=== PATIENT | female | born 1990 | race Caucasian/White ===

== ENCOUNTER → 2018-03-16 01:01 | Observation (INO) ==
[2018-03-15 23:13] LABS: Bilirubin,Urine Negative (Negative); Blood,Urine Negative (Negative); Clarity,Urine Clear (Clear); Color,Urine Yellow (Yellow); Glucose,Urine (UA) Normal (Normal); Ketones,Urine Negative (Negative); Leukocyte Esterase,Urine Negative (Negative); Nitrite,Urine Negative (Negative); Protein,Urine Negative (Neg-Trace); Specific Gravity,Urine 1.013 (1.010-1.025); Urobilinogen,Urine Normal (Normal)
[2018-03-15 23:21] LABS: Amphetamine Screen,Urine Negative ng/mL (Cutoff=1000); Barbiturate Screen,Urine Negative ng/mL (Cutoff=200); Benzodiazepines Screen,Urine Negative ng/mL (Cutoff=200); Cannabinoid Screen,Urine Negative ng/mL (Cutoff = 50); Cocaine Screen,Urine Negative ng/mL (Cutoff= 300); Opiate Screen,Urine Negative ng/mL (Cutoff=300); Phencyclidine Screen,Urine Negative ng/mL (Cutoff=25)
--- NOTE | 2018-03-16 00:42 | OB/GYN Progress Note ---
Date of Encounter: 03/16/18 Time of Encounter: 00:39 - Assessment and Plan (1) 37 weeks gestation of Current Visit: Yes Status: Acute Maintain follow-up with Dr. Barba as scheduled Labor precautions given Discharge home (2) Uterine contractions during Current Visit: Yes Status: Acute UA-negative Likely early labor Cervix unchanged after several hours Subjective - Subjective Principal diagnosis: Uterine contractions Interval history: Ms. Whelan is a 27yo who presents today with complaints of contractions that started around 1300 on 03/15. She reports Dr. Barba placed her on the NST today and did a vaginal exam. She says he states she was 5 cm dilated. He noted she was paulo on her NST but was not making change from previous vaginal exams. She reports good movement and denies leakage of fluid and vaginal bleeding. She has no complaints of headaches, vision changes, right upper quadrant pain. Antepartum ROS: new complaints, movement normal, contractions, no loss of fluid, no vaginal bleeding Objective - Vital Signs Vital Signs: Intake and Output 03/15/18 03/15/18 03/16/18 15:59 23:59 07:59 Other: Weight 76.1 kg - Exam FHR: category 1 FHR comments: Baseline 120 Moderate variability Accelerations present 15 x 15 No decelerations FHR category I Contractions every 3-5 minutes and palpate mild Auscultation: bilateral: normal Abdomen: Present: normal appearance, soft, gravid Uterus: Present: normal, firm Cervical dilation: 5 (per RN) Cervix effacement: 80 station: -2
== END | disposition home or self-care (01) ==
LOC: 1NENULAB
PROVIDERS: ADMIT Advanced Practice Midwife; ATTEND Advanced Practice Midwife

== ENCOUNTER 2018-03-27 19:45 | Inpatient (IN) ==
--- NOTE | 2018-03-27 18:39 | OB/GYN History & Physical ---
Date of Encounter: 03/27/18 Time of Encounter: 18:34 Assessment and Plan (1) 38 weeks gestation of Current visit: Yes Status: Acute (2) Intrauterine Current visit: Yes Status: Acute Admit to L&D for observation of labor Expectant management May have epidural upon request Labs-CBC and clot to hold CEFM Anticipate Dr. Barrios is OB aerodynamic consultant and is available as needed (3) Intact amniotic membranes Current visit: Yes Status: Acute Qualifiers: Trimester: third trimester Qualified Code(s): Z34.93 - Encounter for supervision of normal , unspecified, third trimester (4) GBS (group B Streptococcus carrier), +RV culture, currently Current visit: Yes Status: Acute Penicillin per protocol History of Present Illness Chief complaint: contractions HPI: Ms. Whelan is a 27 year old female at 38 weeks 6 days gestation with an estimated date of of 04/04/18 dated by LMP. She presents from Dr. Barba's office in [place] with complaints of contractions that started last night around 9 or 10:00. She also complains of slight leakage of fluid and is questioning whether or not her water broke. She endorses good movement and denies vaginal bleeding. She is received care from Dr. Barba throughout her . records are available electronically and have been reviewed. Her has been uncomplicated. Labs: O+ GBS+ Hep B- HIV- T. Palladium- GC/CL- Rubella immune Varicella immune Past Med Surg Social Fam HX - Past Medical History Medical history: no medical history Psychiatric history: no psych history - Past Surgical History Additional surgical history: wisdom teeth removal - Social History Smoking Status: Never smoker Smokeless Tobacco Status: No Alcohol use: none Drug use: none - Family History Mother Living Status: Still Living Hx Family Cardiac Disorders: No Hx Family Respiratory Disorders: No Hx Family Cancer: No Hx Family GI Disorders: No Hx Family Genitourinary Disorders: No Hx Family Endocrine Disorder: Yes (hypothyroidism) Hx Family Musculoskeletal Disorders: No Hx Family Neuromuscular Disorders: No Hx Family Neurologic Disorders: No Hx Family HEENT Disorders: No Hx Family Autoimmune Disorders: No Hx Family Reproductive Disorders: No Hx Family Psychosocial Disorders: No Hx Family Medical Disorders: No Obstetrical History - Pregnancies : 2 Para: 1 Term: 1 (1: 09/06/2014, Male, 7lbs 6oz, normal spontaneous vaginal delivery ( ). ) : 0 Ab's: 0 Livin Medications and Allergies Ferrous Sulfate [Iron] 325 mg PO DAILY 03/15/18 [History] Multivitamin [Flintstones] 1 tab PO DAILY 03/15/18 [History] 3 Allergy/AdvReac Type Severity Reaction Status Date / Time prochlorperazine Allergy Hives Verified 03/15/18 22:45 [From Compazine] Review of System OB All systems PM: reviewed and no additional remarkable complaints except as stated Exam - Constitutional Constitutional: well developed, well nourished, average body habitus, mild distress - HEENT HEENT: Normocephaly, Mucus Membranes Moist - Neck Neck exam: full ROM - Lungs Respiratory exam: CTAB - Cardiovascular Cardiovascular exam: RRR, +S1, +S2 - Breasts Breast: bilateral: normal - Abdomen Abdomen: Present: bowel sounds normal, gravid, non tender - Extremities Extremities exam: normal capillary refill, normal inspection, pedal edema, radial pulses palpable and symmetrical Deep Tendon Reflex Grade: 2+ Normal - Vulva Vulva: bilateral: normal - Vagina Vagina: Present: normal moisture - Cervix Dilation: 5 Effacement: 80 Station: 0 - Uterus Uterus exam: Present: normal size, normal contour - Adnexa Adnexa: bilateral: normal - Anus/Rectum Anus/Rectum: Present: normal perianal skin Results Result Diagrams: 03/27/18 18:30 All other labs normal. - VTE Reasons for not Prescribing Prophylaxis: Treatment not Indicated - Low risk for VTE
[2018-03-27 18:56] LABS: Basophils % 0.1 %; Eosinophils % 0.1 %; Hematocrit 31.3 % (35.3-44.9); Hemoglobin 10.5 g/dL (11.5-15.4); Immature Granulocytes % 0.3 % (0-4); Lymphocytes # 0.9 K/mcL (0.6-4.6); Lymphocytes % 13.3 %; Mean Corpuscular HGB Conc 33.5 g/dL (31.6-35.5); Mean Corpuscular Hemoglobin 30.3 pg (28.0-33.3); Mean Corpuscular Volume 90.5 fL (83.0-100.0); Mean Platelet Volume 12.1 fL (9.4-12.4); Monocytes # 0.4 K/mcL (0.0-1.3); Monocytes % 5.9 %; Neutrophils # 5.5 K/mcL (1.6-8.9); Platelet Count 176 K/mcL (140-400); Red Blood Count 3.46 M/mcL (3.82-4.97); Red Cell Distribution Width 13.3 % (11.5-14.5); Segmented Neutrophils % 80.3 %
[2018-03-27 19:08] LABS: Amphetamine Screen,Urine Negative ng/mL (Cutoff=1000); Barbiturate Screen,Urine Negative ng/mL (Cutoff=200); Benzodiazepines Screen,Urine Negative ng/mL (Cutoff=200); Cannabinoid Screen,Urine Negative ng/mL (Cutoff = 50); Cocaine Screen,Urine Negative ng/mL (Cutoff= 300); Opiate Screen,Urine Negative ng/mL (Cutoff=300); Phencyclidine Screen,Urine Negative ng/mL (Cutoff=25)
[~2018-03-27 19:45] MED LIST: *HR* FentaNYL (PF) 100 MCG/2 ML VIAL EP ONE; *HR* Nalbuphine 10 MG/ML AMPUL IVP PRN; Bupivacaine-MPF 0.25% 10 ML VIAL EP ONE; EPHEDrine 50 MG/ML VIAL IVP PRN; Epidural Premix (fent/bupiv) 110 ML EP ONE; Epidural Premix (fent/bupiv) 110 ML EP SCH; Famotidine 20 MG/2 ML VIAL IVP PRN; Lidocaine -MPF 1% 5 ML AMPUL ONE; Metoclopramide 10 MG/2 ML VIAL IVP PRN; Naloxone 0.4 MG/ML INJ IVP PRN; Ondansetron 4 MG/2 ML VIAL IVP PRN; Penicillin G Potassium 5,000,000 UNIT in 0.9 % Sodium Chloride Mini Bag 100 ML IVPB ONE; Ringers Solution, Lactated 1,000 ML IVC SCH; Ringers Solution, Lactated 1,000 ML ONE
[2018-03-27] MEDS ORDERED: Penicillin G Potassium 2,500,000 UNIT in 0.9 % Sodium Chloride 100 ML IVPB SCH (20:00)
--- NOTE | 2018-03-27 20:27 | Anesthesia Evaluation PreOp ---
Date of Encounter: 03/27/18 Time of Encounter: 19:42 - Past History Planned Operation: TINY Cardiac History: Denies any Significant Hx Pulmonary History: Denies Any Significant HX SLACK LINE YARDER History: Denies Any Significant HX Other Medical History: Denies Any Significant HX Anesthesia History: No Prior Anesthetic Complications, Past Anesthesia (wisdom teeth) : Yes Alcohol Use: none Drug use: none Medications and Allergies Ferrous Sulfate [Iron] 325 mg PO DAILY 03/15/18 [History] Multivitamin [Flintstones] 1 tab PO DAILY 03/15/18 [History] 3 Allergy/AdvReac Type Severity Reaction Status Date / Time prochlorperazine Allergy Hives Verified 03/15/18 22:45 [From Compazine] - Meds/Allergy Pre-op Review Medications Reviewed: Yes Allergies Reviewed: Yes Beta Blockers on Current Med List: No Anesthesia Results - Labs 03/27/18 18:30 Anesthesia Exam BP 139/79 P 83 R 16 T97.3 Height: 5'9" Weight: 76.6kg NPO (# of Hours): 2 Pain Scale: 5 Pain Scale Used: Numeric (1 - 10) - HEENT Pupil (Motor): Pupils equal Mallampati: II Teeth: Normal Oral Opening: Greater than 3 - SLACK LINE YARDER LOC: Oriented SLACK LINE YARDER Motor: Normal RUE, Normal LUE, Normal RLE, Normal LLE, Normal Face SLACK LINE YARDER Sensory: Normal: RUE, LUE, RLE, LLE, Face - Cardiac Rhythm: Regular Murmur: None JVD: No Carotid Bruit: No - Pulmonary Breath Sounds: bilateral Clear Respiratory Effort: Symmetrical Anesthesia Assess/Plan ASA Score: 2 Modified Alana Scale for Level of Consciousness: Cooperative, oriented, and tranquil Anesthetic Plan: Regional Autologous Blood: No Monitoring Plan: Standard Monitors Recovery Plan: Other
--- NOTE | 2018-03-27 20:40 | Anesthesia Procedures ---
Date of Encounter: 03/27/18 Time of Encounter: 19:42 Procedures: Anesthesia - Epidural/Spinal Patient ID/Chart reviewed: Yes Patient examined: Yes OB Eval: Gestational age: 39 OB Eval: : 2 OB Eval: Hx Para: 1 OB Eval: Dilated at (cm): 6 OB Eval: Contractions: Non-stressed pattern Consent Obtained: Yes Supplemental Oxygen: None/Room Air Site Prep: Aseptic Technique, Sterile prep and drape, Povidone-Iodine 1% Patient position: upright Local Anesthetic: Lidocaine 1% Amount of Local Anesthetic used: 3 Touhy Needle Gauge: 18 Touhy Needle Depth (cm): 4 Catheter Depth at Skin (cm): 14 Test Dose (1.5% Lido + Epi): Volume given (mls): 3 Test Dose Result: Negative Loading Dose: 0.25% Marcaine (mls): 10 Loading Dose: Fentanyl (mcg): 100 Loading Dose Administered: Thru Catheter Infusion Med: 0.125% Bupivacaine w/ 2 mcg/ml Fentanyl Infusion Rate (mls/hr): [address]: Tegaderm, Tape Interspace Used: L3-L4 Loss of Resistance (GISEL): Yes Blood: No CSF: No Paresthesia: No Procedure: TINY placed 1st pass in upright position without any immediate noted complications. VSS and FHT stable throughout. Vitals + FHT's: 1942 BP 139/79 P 83 R 18 2016 BP 119/73 P 84 R 16 FHT 160s
--- NOTE | 2018-03-27 21:07 | OB Labor Progress Note ---
Date of Encounter: 03/27/18 Time of Encounter: 21:05 Labor Progress Note - Subjective Subjective: Patient comfortable with epidural - Cervix Cervix: 6-7/80/+1 - Heart Tones Heart Tones: Baseline 125 moderate variability Accelerations present 15 x 15 No decelerations FHR category I - [place]: Contractions every 1-6 minutes and palpate mild - Interventions Interventions: SVE AROM-large amount of clear fluid - Plan Plan: Continue expectant management Frequent position changes with peanut ball Start Pitocin augmentation Anticipate Dr. Barrios is aware of plan of care and agrees
[2018-03-27] MEDS ORDERED: Oxytocin 20 units/ LR 1000 mL 20 UNIT/1,000 ML BAG IVC SCH (21:15)
--- NOTE | 2018-03-28 00:03 | Anesthesia Progress Note ---
Date of Encounter: 03/28/18 Time of Encounter: 11:50 Anesthesia Note - Note Note: Called to bedside for patient discomfort lower abdomen. Ropivicaine 0.2% 10ml bolus administered. VSS. 03/28/18 00:01
--- NOTE | 2018-03-28 02:12 | OB/GYN Procedure Note ---
Delivery - Delivery Date: 03/28/18 Provider: Marilyn Givens Intrapartum events: none Delivery induction: none Delivery augmentation: rupture of membranes, pitocin Delivery monitor: external FHT, external uterine Anesthesia: epidural Quantitated Blood Loss: 250 - Infant (s) Infant A Delivery Date: 03/28/18 Delivery Time: 01:38 Presentation: vertex Position: OA Route of delivery: Gender: Female Viability: Viable Pounds: 8 Ounces: 9 Weight Gram: 3.875 kg at 1 minute: 8 at 5 mins: 9 Shoulder Dystocia: not encountered Specimens collected: cord blood Placenta: spontaneous Cord: 3 umbilical vessels - Repair Episiotomy: none Laceration Description: Perineal - 1st Degree (repaired), Labial (left - repaired) - Complications Delivery complications: none Delivery comments: This is a 27-year-old G2 now P2 who is admitted for active labor. She progressed with AROM and Pitocin augmentation to the second stage of labor. She pushed for about 25 minutes. She delivered a viable female , AIXA over a first-degree laceration with the left labial extension. The was placed on the maternal abdomen where the mouth and nares were bulb suctioned. No nuchal cord was identified. No shoulder dystocia was encountered. scores were 8 at 1 minute and 9 at 5 minutes. The infant weighed 8 lbs. 9 oz (3875g). The placenta delivered spontaneously, intact, with a three-vessel cord. Inspection revealed a first-degree perineal laceration with a left labial extension. The laceration was repaired with a 3-0 Vicryl suture. The repair was done under epidural anesthesia. The uterus was firm with no active bleeding. EBL was 250 mL. Placenta and umbilical artery blood gases were held. There were no complications during the procedure. Dad is holding baby swaddled and mom is resting after delivery. - Disposition Mom disposition: stable in LDR [place] disposition: stable in LDR
[2018-03-28] MEDS ORDERED: Oxytocin 20 units/ LR 1000 mL 20 UNIT/1,000 ML BAG IVC SCH (03:28)
[2018-03-28 05:20] LABS: Basophils % 0.1 %; Hematocrit 28.8 % (35.3-44.9); Hemoglobin 9.7 g/dL (11.5-15.4); Immature Granulocytes % 0.6 % (0-4); Lymphocytes # 0.7 K/mcL (0.6-4.6); Lymphocytes % 5.3 %; Mean Corpuscular HGB Conc 33.7 g/dL (31.6-35.5); Mean Platelet Volume 12.1 fL (9.4-12.4); Monocytes # 0.6 K/mcL (0.0-1.3); Monocytes % 5.1 %; Neutrophils # 11.1 K/mcL (1.6-8.9); Platelet Count 153 K/mcL (140-400); Red Blood Count 3.13 M/mcL (3.82-4.97); Red Cell Distribution Width 13.3 % (11.5-14.5); Segmented Neutrophils % 88.9 %
[2018-03-28] MEDS: Prenatal Vit/FA 1 EACH TABLET PO SCH (07:28)
[2018-03-28] MEDS: Benzocaine/Menthol 56 GM AEROSOL SPRAY TP PRN ×2 (07:28→20:04)
[2018-03-28] MEDS: Ibuprofen 600 MG TABLET PO PRN ×3 (07:28→20:03)
[2018-03-28] MEDS: Acetaminophen 325 MG TABLET PO PRN ×2 (11:08→16:39)
[2018-03-29] MEDS: Ibuprofen 600 MG TABLET PO PRN (03:49)
[2018-03-29] MEDS: Prenatal Vit/FA 1 EACH TABLET PO SCH (08:25)
[2018-03-29 09:06] VITALS: BP 109/66
--- NOTE | 2018-03-29 10:18 | Discharge Summary ---
Date of Encounter: 03/29/18 Time of Encounter: 10:16 - Discharge Diagnosis (1) Vaginal delivery Priority: Primary Status: Acute Comments: Pt meeting all milestones. She desires discharge home today. - Discharge Medications Prescriptions: Ibuprofen [Motrin] 600 mg PO Q6HR PRN #30 tablet PRN Reason: Cramping Docusate [Colace] 100 mg PO BID #30 capsule Home Medications: Ferrous Sulfate [Iron] 325 mg PO DAILY 03/15/18 [History] Multivitamin [Flintstones] 1 tab PO DAILY 03/15/18 [History] Benzocaine/Menthol [place] [Dermoplast [place]] 1 appl TP QID PRN aerosol 03/29/18 [Rx] Docusate [Colace] 100 mg PO BID #30 capsule 03/29/18 [Rx] Ibuprofen [Motrin] 600 mg PO Q6HR PRN #30 tablet 03/29/18 [Rx] Allergies/Adverse Reactions: 3 Allergy/AdvReac Type Severity Reaction Status Date / Time prochlorperazine Allergy Hives Verified 03/15/18 22:45 [From Compazine] Data Procedures and tests throughout hospitalization: Laboratory Tests 03/27/18 03/27/18 03/28/18 18:30 18:30 04:34 WBC 6.9 12.5 H D RBC 3.46 L 3.13 L Hgb 10.5 L 9.7 L Hct 31.3 L 28.8 L MCV 90.5 92.0 MCH 30.3 31.0 MCHC 33.5 33.7 RDW 13.3 13.3 Plt Count 176 153 MPV 12.1 12.1 Immature Gran % 0.3 0.6 Seg Neutrophils % 80.3 88.9 Lymphocytes % 13.3 5.3 Monocytes % 5.9 5.1 Eosinophils % 0.1 0.0 Basophils % 0.1 0.1 Neutrophils # 5.5 11.1 H Lymphocytes # 0.9 0.7 Monocytes # 0.4 0.6 Eosinophils # 0.0 0.0 Basophils # 0.0 0.0 Urine Opiates Screen Negative Ur Barbiturates Screen Negative Ur Phencyclidine Scrn Negative Ur Amphetamines Screen Negative U Benzodiazepines Scrn Negative Urine Cocaine Screen Negative U Marijuana (THC) Screen Negative Date of admission: 03/27/18 19:45 Primary care physician: Sanford Duong DO Consults: 03/28/18 03:28 Consult to [facility] [employer] [CONS] Routine Comment: Vaginal delivery, consult needed Discharging clinician: Valarie Juarez Anticipated date of discharge: 03/29/18 - Patient Status Disposition: Home, Self-Care Condition: Good Functional capacity at discharge: independent ambulation Overall status at discharge: patient is progressing back to baseline - Discharge Instructions Follow Up With: Sanford Duong DO [Primary Care Provider] - Sukumar Barba MD [Partnered Physician] - - Diet and Activity Activity: increase activity as tolerated Hospital Course Reason for admission: active labor Delivery: Episiotomy: none Laceration: 1st degree, other (labial) Other procedures: none complications: none Discharge diagnosis: IUP at term delivered baby: female Hospital course: - Delivery Date: 03/28/18 Provider: Marilyn Givens Intrapartum events: none Delivery induction: none Delivery augmentation: rupture of membranes, pitocin Delivery monitor: external FHT, external uterine Anesthesia: epidural Quantitated Blood Loss: 250 - (s) A Delivery Date: 03/28/18 Delivery Time: 01:38 Presentation: vertex Position: OA Route of delivery: Gender: Female Viability: Viable Pounds: 8 Ounces: 9 Weight Gram: 3.875 kg at 1 minute: 8 at 5 mins: 9 Shoulder Dystocia: not encountered Specimens collected: cord blood Placenta: spontaneous Cord: 3 umbilical vessels - Repair Episiotomy: none Laceration Description: Perineal - 1st Degree (repaired), Labial (left - repaired) - Complications Delivery complications: none - Disposition Mom disposition: home PPD1 disposition: home with mother, bottle feeding Time Attestation: Total time spent providing and/or coordinating discharge services: Time Spent: Less than 30 minutes Exam - Constitutional Vitals: Temp Pulse Resp BP Pulse Ox 98.2 F 72 16 109/66 98 03/29/18 09:05 03/29/18 09:05 03/29/18 09:05 03/29/18 09:05 03/28/18 19:35 General appearance IM: A&O X 3 - Respiratory Respiratory exam: Present: CTAB - Cardiovascular Cardiovascular exam IM: Present: RRR - GI/Abdominal GI/Abdominal exam IM: soft - Uterine Tone: Firm - Extremities Exam Extremities exam IM: Present: normal inspection - Neurological Exam Neurological exam: normal gait, oriented X3 - Psychiatric Additional comments: reports good mood
== END 2018-03-29 12:51 | disposition home or self-care (01) | DRG 775 ==
LOC: 1NENULAB → 1NENUOBS 03-28 03:38
PROVIDERS: ADMIT Obstetrics & Gynecology; ATTEND Obstetrics & Gynecology

== ENCOUNTER 2021-05-19 15:39 | Inpatient (IN) ==
[2021-05-19] MEDS ORDERED: Lidocaine 1% 20 ML MDV INFILT PRN (15:43)
[2021-05-19] MEDS ORDERED: Famotidine 20 MG/2 ML VIAL IVP PRN (15:43)
[2021-05-19] MEDS ORDERED: Penicillin G Potassium 5,000,000 UNIT in 0.9 % Sodium Chloride Mini Bag 100 ML IVPB ONE (15:43)
[2021-05-19] MEDS ORDERED: *HR* Nalbuphine 10 MG/ML AMPUL IV PRN (15:43)
[2021-05-19] MEDS ORDERED: Metoclopramide 10 MG/2 ML VIAL IVP PRN (15:43)
[2021-05-19] MEDS ORDERED: Ondansetron 4 MG/2 ML VIAL IVP PRN (15:43)
[2021-05-19] MEDS ORDERED: Naloxone 0.4 MG/ML INJ IVP PRN (15:43)
[2021-05-19] MEDS ORDERED: Ringers Solution, Lactated 1,000 ML IVC SCH (15:45)
[2021-05-19] MEDS ORDERED: EPHEDrine 50 MG/ML VIAL IVP PRN (16:16)
[2021-05-19] MEDS ORDERED: Epidural Premix (fent/bupiv) 110 ML EP SCH (16:30)
[2021-05-19] MEDS ORDERED: Epidural Premix (fent/bupiv) 110 ML EP ONE (16:38)
[2021-05-19 17:09] LABS: Basophils % 0.1 %; Eosinophils % 0.1 %; Hematocrit 36.3 % (35.3-44.9); Immature Granulocytes % 0.4 % (0-4); Lymphocytes % 12.6 %; Mean Corpuscular HGB Conc 33.1 g/dL (31.6-35.5); Mean Corpuscular Hemoglobin 32.5 pg (28.0-33.3); Mean Corpuscular Volume 98.4 fL (83.0-100.0); Mean Platelet Volume 11.5 fL (9.4-12.4); Monocytes # 0.5 K/mcL (0.0-1.3); Monocytes % 6.9 %; Platelet Count 156 K/mcL (140-400); Red Blood Count 3.69 M/mcL (3.82-4.97); Red Cell Distribution Width 13.4 % (11.5-14.5); Segmented Neutrophils % 79.9 %; White Blood Count 7.5 K/mcL (4.3-11.1)
[2021-05-19 17:13] LABS: Amphetamine Screen,Urine Negative ng/mL (Cutoff=1000); Barbiturate Screen,Urine Negative ng/mL (Cutoff=200); Benzodiazepines Screen,Urine Negative ng/mL (Cutoff=200); Cannabinoid Screen,Urine Negative ng/mL (Cutoff = 50); Cocaine Screen,Urine Negative ng/mL (Cutoff= 300); Opiate Screen,Urine Negative ng/mL (Cutoff=300); Phencyclidine Screen,Urine Negative ng/mL (Cutoff=25)
[2021-05-19] MEDS ORDERED: Oxytocin 20 units/ LR 1000 mL 20 UNIT/1,000 ML BAG IVC SCH ×2 (18:30→23:29)
[2021-05-19] MEDS ORDERED: Ropivacaine/PF 0.2% 20 ML VIAL ONE (18:57)
[2021-05-19] MEDS ORDERED: *HR* FentaNYL (PF) 100 MCG/2 ML VIAL ONE (18:58)
[2021-05-19] MEDS ORDERED: Penicillin G Potassium 2,500,000 UNIT/105 ML MLS IVPB SCH (20:00)
[2021-05-19] MEDS ORDERED: Measles/Mumps/Rubella Vacc 0.5 ML VIAL SQ PRN (23:29)
[2021-05-19] MEDS ORDERED: Benzocaine/Menthol 56 GM AEROSOL SPRAY TP PRN (23:29)
[2021-05-19] MEDS ORDERED: Lanolin 7 G OINT...G. TP PRN (23:29)
[2021-05-19] MEDS ORDERED: Acetaminophen 325 MG TABLET PO PRN (23:29)
[2021-05-19] MEDS ORDERED: Sennosides 8.6 MG TABLET PO PRN (23:29)
[2021-05-19] MEDS: Ibuprofen 600 MG TABLET PO PRN (23:42)
[2021-05-20 06:22] LABS: Basophils % 0.1 %; Eosinophils % 0.4 %; Hematocrit 30.1 % (35.3-44.9); Immature Granulocytes % 0.4 % (0-4); Lymphocytes % 11.9 %; Mean Corpuscular HGB Conc 33.9 g/dL (31.6-35.5); Mean Corpuscular Hemoglobin 33.3 pg (28.0-33.3); Mean Corpuscular Volume 98.4 fL (83.0-100.0); Mean Platelet Volume 11.4 fL (9.4-12.4); Monocytes # 0.5 K/mcL (0.0-1.3); Monocytes % 6.3 %; Neutrophils # 6.7 K/mcL (1.6-8.9); Platelet Count 116 K/mcL (140-400); Red Blood Count 3.06 M/mcL (3.82-4.97); Red Cell Distribution Width 13.5 % (11.5-14.5); Segmented Neutrophils % 80.9 %; White Blood Count 8.3 K/mcL (4.3-11.1)
[2021-05-20] MEDS: Ibuprofen 600 MG TABLET PO PRN (06:23)
[2021-05-20 06:28] LABS: Hemoglobin 10.2 g/dL (11.5-15.4)
[2021-05-20] MEDS ORDERED: Prenatal Vit/FA 1 EACH TABLET PO SCH (09:00)
[2021-05-20 16:49] VITALS: BP 116/67; PULSE 76; TEMP 97.9; O2SAT 98
== END 2021-05-20 22:00 | disposition home or self-care (01) | DRG 807 ==
LOC: 1NENULAB 15:39 → 1NENUOBS 23:31
PROVIDERS: ADMIT Advanced Practice Midwife; ATTEND Advanced Practice Midwife